=== PATIENT | female | born 1970 | race Asian ===

== ENCOUNTER 2017-02-04 02:08 | Emergency (ER) | payer MEDICAID ==
[~2017-02-04] VITALS: Ht 157.5 cm; Wt 64.0 kg
[2017-02-04 02:39] LABS: Urine Bilirubin Negative (Negative); Urine Blood 1+ /uL (Negative); Urine Color Yellow (Yellow); Urine Glucose Normal (Normal); Urine Ketone Negative (Negative); Urine Mucus FEW (None Seen); Urine Nitrite Negative (Negative); Urine RBC 3 /hpf (0 - 4); Urine Squamous Epithelial Cell FEW /hpf (<5); Urine Urobilinogen Normal (Negative)
[2017-02-04 08:02] VITALS: BP 143/87
== END 2017-02-04 08:09 | disposition home or self-care (01) ==
LOC: ER 02:12
DX: O46.91 Antepartum hemorrhage, unspecified, first trimester (principal); R10.9 Unspecified abdominal pain; M54.9 Dorsalgia, unspecified; Z3A.01 Less than 8 weeks gestation of pregnancy
CPT/HCPCS: 36415; 76801; 76817; 81001; 81025; 84702; 99285; J7030